=== PATIENT | female | born 1990 | race Asian ===

== ENCOUNTER 2016-10-03 20:12 | Emergency (ER) | payer OTHER ==
[~2016-10-03] VITALS: Ht 167.6 cm; Wt 83.9 kg
[2016-10-03] MEDS ORDERED: PROZAC20 MG ORAL (20:29)
[2016-10-03] MEDS ORDERED: WELLBUTRIN SR100 MG ORAL (20:30)
[2016-10-03] MEDS ORDERED: AUGMENTIN 875-1 EAC1 ORAL (21:08)
[2016-10-03] MEDS ORDERED: PSEUDOEPHEDRINE30 MG PO (21:08)
[2016-10-03 21:56] VITALS: BP 128/73
[2016-10-03 22:00] VITALS: BP 128/73
--- NOTE | 2016-10-04 02:06 | Emergency Room Report ---
History of Present Illness General Chief Complaint: Earache Source: Patient Present Illness HPI 25 YOF with right ear drainage, loss of hearing, and pain for 2 days. Uses Qtips "deep" in the ears. Denies fever/chills, headache, tinnitus, trauma. No OTC meds taken. Also c/o "sinus infection" with congestion, no rhinorrhea or sore throat. Patient History Past Medical History: none Past Surgical History: none Pertinent Family History: none Social History: Denies: alcohol use, drug use, smoking Last Menstrual Period: September Now: No Immunizations: UTD Reviewed Nursing Documentation: PMH: Agreed, PSxH: Agreed Nursing Documentation-PMH Hx Gastrointestinal Problems: Yes - heartburn History Of Psychiatric Problem: Yes - depression Review of Systems All Other Systems: negative except mentioned in HPI Physical Exam Vital Signs Date Time Temp Pulse Resp B/P Pulse Ox O2 Delivery O2 Flow Rate FiO2 10/03/16 20:21 99.0 109 16 123/74 97 Room Air Sp02 EP Interpretation: reviewed, normal General Appearance: normal inspection, well appearing, no apparent distress, alert Head: atraumatic Eyes: bilateral eye EOMI, bilateral eye PERRL ENT: normal pharynx, no angioedema, normal voice, other - Right TM ruptured with suppurative drainage. No external ear ttp or mastoid ttp; left TM normal Neck: normal inspection, full range of motion, supple, no bony tend Respiratory: normal inspection, lungs clear, normal breath sounds, no respiratory distress, no retraction, no wheezing Gastrointestinal: normal inspection, normal bowel sounds, non tender, soft, no guarding, no hernia Genitourinary: no CVA tenderness Musculoskeletal: normal inspection, back normal, normal range of motion, Matthew' s Sign negative Neurologic: normal inspection, alert, responsive, speech normal Psychiatric: normal inspection, judgement/insight normal, mood/affect normal Skin: normal inspection, normal color, no rash Medical Decision Making Diagnostic Impression: Primary Impression: Earache, right ER Course Right suppurative otitis with likely ruptured TM. VSS. Afebrile. Assoc with sinus congestion Advised STOP using Qtips Augmentin to tx otitis media and sinusitis PRN sudafed ENT followup DC home Last Vital Signs Date Time Temp Pulse Resp B/P Pulse Ox O2 Delivery O2 Flow Rate FiO2 10/03/16 22:00 98.9 103 15 128/73 97 Room Air Status: improved Disposition: HOME, SELF-CARE Condition: Improved Scripts Pseudoephedrine Hcl* (SUDAFED*) 30 Mg Tablet 30 MG PO Q6H for sinus congestion for 7 Days, #30 TAB Prov: GINNY GARZA M.D. 10/03/16 Amoxicillin/Potassium Clav 875-125* (AUGMENTIN 875-125 TABLET*) 1 Each Tablet 1 TAB ORAL TWICE A DAY for 10 Days, #20 TAB Prov: GINNY GARZA M.D. 10/03/16 Referrals: [facility],REFERRING (PCP) Patient Instructions: Otitis Media, Adult, [id number], Eardrum Perforation, [id number] Additional Instructions: - Take ALL antibiotics as prescribed for 10 days - Take sudafed as needed during the day for sinus congestion - Also try Neti Pot rinse in the shower to clear out your sinuses - Follow up with ENT specialist within 1 week GINNY GARZA M.D. Oct 04, 2016 02:06
== END 2016-10-03 22:03 | disposition home or self-care (01) ==
LOC: EMR 21:18
DX: H66.91 Otitis media, unspecified, right ear (principal); J01.90 Acute sinusitis, unspecified
CPT/HCPCS: 99284